=== PATIENT | female | born 1990 | race Caucasian/White ===

== ENCOUNTER 2017-07-15 02:41 | Emergency (ER) | payer SELFPAY ==
[2017-07-15] MEDS ORDERED: DEXAMETHASONE SOD PHOS INJ 10 MG/1 ML VIAL IV ONE (03:37)
[2017-07-15] MEDS ORDERED: AMPICILLIN SOD/SULBACTAM 3 GM VIAL IV ONE (03:37)
--- NOTE | 2017-07-15 03:41 | ER Document Report ---
ED General - General Chief Complaint: Sore Throat Stated Complaint: SORE THROAT Time Seen by Provider: 07/15/17 03:36 TRAVEL OUTSIDE OF THE [place] IN LAST 30 DAYS: No - HPI Notes: 27-year-old female presents with sore throat. Patient describes 1-1/2 days of gradual increasing pain, bilateral throat but primarily left side. Difficulty swallowing but able to manage her secretions. Uncertain if she has had fever. No vomiting. No other modifying factors, no other associated symptoms, no other provocative or palliative factors. - Related Data Allergies/Adverse Reactions: No Known Allergies Allergy (Unverified 07/15/17 02:47) Past Medical History - Social History Smoking Status: Unknown if Ever Smoked Drug Abuse: None Family History: Reviewed & Not Pertinent - Medical History Medical History: Negative Review of Systems - Review of Systems Notes: Review of systems as in the history of present illness, otherwise negative. Physical Exam - Vital signs Vitals: Temp Pulse Resp BP Pulse Ox 98 F 73 18 126/76 H 100 07/15/17 02:45 07/15/17 02:45 07/15/17 02:45 07/15/17 02:45 07/15/17 02:45 - Notes Notes: General: Well developed . HEENT: Normocephalic, atraumatic. Pupils equal round reactive to light. No JVD. Moderate pharyngeal injection is noted. The left tonsillar bed has fullness and an angry red erythema without obvious fluctuance. The uvula is not deviated Chest: No trauma. Respiratory: Good air exchange, normal excursion. Cardiac: Regular rhythm. No murmurs or gallops. Abdomen: Soft, benign. Nondistended. Nontender. Back: No asymmetry or gross abnormality. Motor: Grossly normal power and tone. Neurologic: Alert, nonfocal. Cranial nerves II-12 are intact. Sensation intact. Vascular: Well perfused. Normal peripheral pulses. Skin: No petechiae or purpura. Course - Re-evaluation Re-evalutation: 07/15/17 03:43 Nontoxic-appearing female with the after mentioned symptoms. No trismus. Likely peritonsillar cellulitis, I think abscess is much less likely. No indication for emergent drainage. Going to treat with IV Unasyn, IV Decadron, outpatient Augmentin and follow-up with ENT. Ibuprofen for pain. - Vital Signs Vital signs: Temp Pulse Resp BP Pulse Ox 98 F 73 18 126/76 H 100 07/15/17 02:45 07/15/17 02:45 07/15/17 02:45 07/15/17 02:45 07/15/17 02:45 Discharge - Discharge Clinical Impression: Peritonsillar cellulitis Condition: Stable Disposition: HOME, SELF-CARE Instructions: Strep Throat ([facility]) Additional Instructions: You have peritonsillar cellulitis. Follow-up with ENT if you are not improving. Prescriptions: Amox Tr/Potassium Clavulanate [Augmentin 875-125 Tablet] 1 tab PO BID 10 Days tablet Referrals: MALLORY GUEVARA DO [ASSOCIATE] - Follow up as needed
[2017-07-15 04:41] VITALS: BP 114/66
== END 2017-07-15 04:41 | disposition home or self-care (01) ==
LOC: ER 02:41
DX: J36 Peritonsillar abscess (principal)
CPT/HCPCS: 99283; 96375; 96365; J0295; J1100

== ENCOUNTER 2018-03-18 16:51 | Emergency (ER) | payer BC ==
[2018-03-18] MEDS ORDERED: DIPHENHYDRAMINE HCL 25 MG CAPSULE PO ONE (17:17)
[2018-03-18] MEDS ORDERED: PROCHLORPERAZINE MALEATE 10 MG TABLET PO ONE (17:17)
--- NOTE | 2018-03-18 17:18 | ER Document Report ---
ED Medical Screen (RME) - General Chief Complaint: Headache Stated Complaint: HEADACHE, DIZZY, SOB Time Seen by Provider: 03/18/18 17:12 Notes: 28-year-old female patient complains of a migraine type headache that started yesterday morning and is been getting worse. There is nausea, and dizziness. She took Motrin 800 this morning and again about 1 PM without benefit. 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 Her last menstrual period was about 2 weeks ago. I have greeted and performed a rapid initial assessment of this patient. A comprehensive ED assessment and evaluation of the patient, analysis of test results and completion of the medical decision making process will be conducted by additional ED providers. TRAVEL OUTSIDE OF THE [place] IN LAST 30 DAYS: No - Related Data Allergies/Adverse Reactions: No Known Allergies Allergy (Unverified 07/15/17 02:47) Past Medical History - Social History Frequency of alcohol use: Social Drug Abuse: None Renal/ Medical History: Denies: Hx Peritoneal Dialysis Physical Exam - Vital signs Vitals: Temp Pulse Resp BP Pulse Ox 97.8 F 71 13 124/79 99 03/18/18 16:57 03/18/18 16:57 03/18/18 16:57 03/18/18 16:57 03/18/18 16:57 Course - Vital Signs Vital signs: Temp Pulse Resp BP Pulse Ox 97.8 F 71 13 124/79 99 03/18/18 16:57 03/18/18 16:57 03/18/18 16:57 03/18/18 16:57 03/18/18 16:57
[2018-03-18] MEDS ORDERED: METOCLOPRAMIDE HCL 10 MG TABLET PO ONE (19:06)
[2018-03-18 19:25] VITALS: BP 136/89
--- NOTE | 2018-03-18 19:46 | RADIOLOGY REPORT (SQ) ---
EXAM DESCRIPTION: CT HEAD WITHOUT COMPLETED DATE/TIME: 03/18/2018 7:29 pm REASON FOR STUDY: headache COMPARISON: None. TECHNIQUE: Axial images acquired through the brain without intravenous contrast. Images reviewed wi th bone, brain and subdural windows. Additional sagittal and coronal reconstructions were generated. Images stored on PACS. All CT scanners at this facility use dose modulation, iterative reconstruction, and/or weight based d osing when appropriate to reduce radiation dose to as low as reasonably achievable (ALARA). [facility]: Dose Right [facility]: CareDose [facility]: Dose Right [facility]: Teradose 4D [facility]: Nordic Neurostim RADIATION DOSE: CT Rad equipment meets quality standard of care and radiation dose reduction techniq ues were employed. CTDIvol: 53.2 mGy. DLP: 1097 mGy-cm. mGy. LIMITATIONS: None. FINDINGS: VENTRICLES: Normal size and contour. CEREBRUM: No masses. No hemorrhage. No midline shift. No evidence for acute infarction. Normal gra y/white matter differentiation. No areas of low density in the white matter. CEREBELLUM: No masses. No hemorrhage. No alteration of density. No evidence for acute infarction. EXTRAAXIAL SPACES: No fluid collections. No masses. ORBITS AND GLOBE: No intra- or extraconal masses. Normal contour of globe without masses. CALVARIUM: No fracture. PARANASAL SINUSES: No fluid or mucosal thickening. SOFT TISSUES: No mass or hematoma. OTHER: No other significant finding. IMPRESSION: NORMAL BRAIN CT WITHOUT CONTRAST. EVIDENCE OF ACUTE STROKE: NO. COMMENT: Quality ID # [id number]: Final reports with documentation of one or more dose reduction techniques (e.g., Automated exposure control, adjustment of the mA and/or kV according to patient size, use of iterative reconstruction technique) TECHNICAL DOCUMENTATION: JOB ID: [id number] [employer]- All Rights Reserved Reading location - IP/workstation name: [email or web address]
--- NOTE | 2018-03-18 20:35 | ER Document Report ---
ED General - General Chief Complaint: Headache Stated Complaint: HEADACHE, DIZZY, SOB Time Seen by Provider: 03/18/18 17:12 Mode of Arrival: Ambulatory TRAVEL OUTSIDE OF THE [place] IN LAST 30 DAYS: No - HPI Patient complains to provider of: headache Onset: Other - This is a 28-year-old female who presents for evaluation of a migrainous headache for which she had been treated in the past extensively and was identified to have a tumor which was resected in September (6 months prior) after which she was feeling much better. Her surgery was performed at [facility]. She notes that she had been doing well there since not really having any episodes of headaches until yesterday when she began to develop a headache and was using Motrin to try and help with it but continued to have symptoms and because of her previous issues she was nervous and wanted to be evaluated in the emergency department. Denies any fevers or chills recent trauma to the head use of blood thinners or other injuries. She denies any focal numbness or weakness at this time does endorse some slight photophobia and nausea. - Related Data Allergies/Adverse Reactions: No Known Allergies Allergy (Unverified 07/15/17 02:47) Past Medical History - General Information source: Patient - Social History Smoking Status: Former Smoker Frequency of alcohol use: Social Drug Abuse: None Family History: Reviewed & Not Pertinent Patient has suicidal ideation: No Patient has homicidal ideation: No Renal/ Medical History: Denies: Hx Peritoneal Dialysis Review of Systems - Review of Systems -: Yes All other systems reviewed and negative Physical Exam - Vital signs Vitals: Temp Pulse Resp BP Pulse Ox 97.8 F 71 13 124/79 99 03/18/18 16:57 03/18/18 16:57 03/18/18 16:57 03/18/18 16:57 03/18/18 16:57 Interpretation: Normal - General General appearance: Appears well, Alert - HEENT Head: Normocephalic, Atraumatic Eyes: Normal Pupils: PERRL - Respiratory Respiratory status: No respiratory distress Chest status: Nontender Breath sounds: Normal Chest palpation: Normal - Cardiovascular Rhythm: Regular Heart sounds: Normal auscultation Murmur: No - Abdominal Inspection: Normal Distension: No distension Bowel sounds: Normal Tenderness: Nontender Organomegaly: No organomegaly - Back Back: Normal, Nontender - Extremities General upper extremity: Normal inspection, Nontender, Normal color, Normal ROM, Normal temperature General lower extremity: Normal inspection, Nontender, Normal color, Normal ROM, Normal temperature, Normal weight bearing. No: Edwin's sign - Neurological Neuro grossly intact: Yes Cognition: Normal Orientation: AAOx4 [place] Coma Scale Eye Opening: Spontaneous [place] Coma Scale Verbal: Oriented [place] Coma Scale Motor: Obeys Commands [place] Coma Scale Total: 15 Speech: Normal Motor strength normal: LUE, RUE, LLE, RLE Sensory: Normal - Psychological Associated symptoms: Normal affect, Normal mood - Skin Skin Temperature: Warm Skin Moisture: Dry Skin Color: Normal Course - Re-evaluation Re-evalutation: 03/19/18 00:16 28-year-old female with a history of migraines in the past as well as a complex neurologic history as she has had a tumor in her brain reported which was resected several months prior. She has had improvement in her symptoms since administration of medications through triage. [address] of the head given her previous history. CT of the head is negative. Administered medication to help with her migraine. Will be discharged with return precautions and expectant management a brief course of Fioricet to help with her migraine. At the time of discharge she was neurologically intact well-appearing and able tolerate p.o. - Vital Signs Vital signs: Temp Pulse Resp BP Pulse Ox 97.8 F 52 L 13 136/89 H 98 03/18/18 16:57 03/18/18 18:14 03/18/18 16:57 03/18/18 19:00 03/18/18 19:01 Discharge - Discharge Clinical Impression: Migraine Qualifiers: Migraine type: unspecified Status migrainosus presence: with status migrainosus Intractability: not intractable Qualified Code(s): G43.901 - Migraine, unspecified, not intractable, with status migrainosus Headache Qualifiers: Headache type: unspecified Headache chronicity pattern: unspecified pattern Intractability: not intractable Qualified Code(s): R51 - Headache Condition: Good Disposition: HOME, SELF-CARE Instructions: Headache ([facility]) Additional Instructions: You were seen today in the emergency department for your headache. you had an evaluation including a physical exam and a CAT scan of your head. The CAT scan of your head did not show any bleeding swelling or other injury. I think that you are having a migraine. You have been given a medicine to take for your migraine. If you begin to have vomiting you are unable to keep anything down have fevers or your headache worsens please return to the emergency room because it could be a more serious condition otherwise follow-up with your primary doctor this week. Prescriptions: Butalb/Acetaminophen/Caffeine [Fioricet (50-325-40 mg) Tablet] 1 tab PO Q4HP PRN #30 tab PRN Reason:
== END 2018-03-18 20:48 | disposition home or self-care (01) ==
LOC: ER 16:51
DX: G43.901 Migraine, unspecified, not intractable, with status migrainosus (principal); Z98.890 Other specified postprocedural states; Z87.891 Personal history of nicotine dependence
CPT/HCPCS: 99283; 70450; S0183